=== PATIENT | male | born 1985 | race African-American/Black ===

== ENCOUNTER 2024-04-30 02:26 | Emergency (ER) | payer MEDICAID ==
[~2024-04-30] VITALS: Ht 190.5 cm; Wt 76.6 kg
[2024-04-30 02:27] VITALS: BP 148/92; TEMP 97.4; O2SAT 99
[2024-04-30] MEDS ORDERED: KETO10TAB PO (04:20)
[2024-04-30] MEDS ORDERED: CLEO300C2 PO (04:20)
[2024-04-30] MEDS: CLINDAMYCIN 150MG CAPSULE PO ONE (04:25)
[2024-04-30] MEDS: KETOROLAC TROMETHAMINE 10 MG TAB PO ONE (04:26)
== END 2024-04-30 04:28 | disposition home or self-care (01) ==
LOC: M ED 02:26
DX: K08.89 Other specified disorders of teeth and supporting structures (principal)

== ENCOUNTER 2025-04-05 01:33 | Emergency (ER) | payer OTHER, SELFPAY ==
[~2025-04-05] VITALS: Ht 190.5 cm; Wt 77.2 kg
[~2025-04-05 01:33] MED LIST: CLEO300C2 PO; KETO10TAB PO
[2025-04-05] MEDS: LIDOCAINE 2% MDV 20 ML VIAL SC ONE (07:10)
[2025-04-05] MEDS: LIDOCAINE 2% W/EPINEPHrine 20 ML VIAL **PRES FREE INJ ONE (07:19)
[2025-04-05] MEDS ORDERED: CEPH500T PO (07:34)
[2025-04-05] MEDS: PERCOCET 5MG/325MG TAB PO ONE (07:55)
[2025-04-05] MEDS: CEPHALEXIN 500 MG CAP PO ONE (07:55)
[2025-04-05] MEDS: TETANUS/DIPHTH/ACEL. PERTUSSIS 0.5 ML SYR IM.IMMUN ONE (07:56)
[2025-04-05 07:59] VITALS: BP 141/88; TEMP 97.2; O2SAT 100
== END 2025-04-05 08:08 | disposition home or self-care (01) ==
LOC: M ED 01:33
DX: S61.411A Laceration without foreign body of right hand, initial encounter (principal); W26.0XXA Contact with knife, initial encounter; Y92.9 Unspecified place or not applicable; Y93.9 Activity, unspecified; Y99.0 Civilian activity done for income or pay; Z79.899 Other long term (current) drug therapy

== ENCOUNTER 2025-04-13 09:43 | Emergency (ER) | payer SELFPAY ==
[~2025-04-13] VITALS: Ht 190.5 cm; Wt 74.4 kg
[~2025-04-13 09:43] MED LIST changes: +CEPH500T PO
[2025-04-13 11:01] VITALS: BP 120/80; TEMP 97.7; O2SAT 100
== END 2025-04-13 11:06 | disposition home or self-care (01) ==
LOC: M ED 09:43
DX: Z48.02 Encounter for removal of sutures (principal); F17.200 Nicotine dependence, unspecified, uncomplicated; F12.10 Cannabis abuse, uncomplicated

== ENCOUNTER → 2025-08-19 | Outpatient (REF) | payer OTHER ==
[2025-08-19 17:36] LABS: ALT/SGPT 15 U/L (7.0-40); AST/SGOT 13 U/L (<34); CALCIUM LEVEL 9.3 MG/DL (8.5-10.1); CARBON DIOXIDE LEVEL 30 MMOL/L (20-31); CHLORIDE LEVEL 110 MMOL/L (98-107); CHOLESTEROL LEVEL 127 MG/DL (<200); CHOLESTEROL RISK RATIO 2.77 (<5); CREATININE FOR GFR 0.99 MG/DL (0.70-1.30); GLOMERULAR FILTRATION RATE > 90.0 (>60); LDL CHOLESTEROL 55.7 MG/DL (<100); NON-HDL-C 81.3 MG/DL; POTASSIUM SERUM 4.9 MMOL/L (3.5-5.1); PSA SCREENING 1.02 NG/ML (< 4.00); SODIUM LEVEL 145 MMOL/L (136-145); TRIGLYCERIDES LEVEL 128 MG/DL (<150)
[2025-08-19 18:05] LABS: HIV 1&2 SCREEN NEGATIVE (NEGATIVE)
[2025-08-19 18:12] LABS: HEPATITIS C VIRUS ABY INDEX 0.07 INDEX (<0.8)
[2025-08-19 18:37] LABS: ESTIMATED AVERAGE GLUCOSE 117.0 MG/DL (60-110)
== END ==
LOC: M LAB REF 16:20
PROVIDERS: ATTEND Student in an Organized Health Care Education/Training Program
DX: Z12.5 Encounter for screening for malignant neoplasm of prostate (principal); Z68.41 Body mass index [BMI] 40.0-44.9, adult; A64 Unspecified sexually transmitted disease